=== PATIENT | female | born 1955 | race Caucasian/White ===

== ENCOUNTER 2018-10-12 09:32 | Outpatient (CLI) | payer OTHER ==
--- NOTE | 2018-10-12 10:47 | BD ---
DEXA BONE DENSITY STUDY: Date: 10/12/18 COMPARISON: None. HISTORY: 63-year-old postmenopausal female for screening for osteoporosis. FINDINGS: Lumbar Spine: BMD (g/cm2) L1 0.951 T-Score: -0.4 L2 0.955 T-Score: -0.7 L3 1.123 T-Score: 0.4 L4 1.058 T-Score: 0.0 L1-L4 1.025 T-Score: -0.2 Femoral Neck: 0.757 T-Score: -0.8 Total Femur: 0.957 T-Score: 0.1 IMPRESSION: Normal bone mineral density. POS: AMOR
--- NOTE | 2018-10-19 15:48 | MMO ---
Bilateral MAMMO Bilat Screen [facility]. CLINICAL HISTORY: Patient is 63 years old and is seen for screening. The patient has no family history of breast cancer. The patient has no personal history of cancer. VIEWS: The views performed were: bilateral craniocaudal with tomosynthesis and bilateral mediolateral oblique with tomosynthesis. FILMS COMPARED: The present examination has been compared to prior imaging studies performed at [facility] on 11/01/2013, 12/12/2014 and 05/14/2016. MAMMOGRAM FINDINGS: There are scattered fibroglandular densities. There is a lobular mass with circumscribed margins seen in the upper-outer region of the left breast. In the right breast, there are no suspicious masses, calcifications or areas of architectural distortion. IMPRESSION: MASS IN THE LEFT BREAST REQUIRES ADDITIONAL EVALUATION. AN ULTRASOUND EXAM IS RECOMMENDED. THE RESULTS OF THIS EXAM WERE SENT TO THE PATIENT. ACR BI-RADS Category 0 - Incomplete: Need additional imaging evaluation. [facility] will notify the patient of the need for additional imaging services. MAMMOGRAPHY NOTE: 1. A negative mammogram report should not delay a biopsy if a dominant of clinically suspicious mass is present. 2. Approximately 10% to 15% of breast cancers are not detected by mammography. 3. Adenosis and dense breasts may obscure an underlying neoplasm.
== END 2018-10-12 09:33 | disposition home or self-care (01) ==
LOC: BICMAMMO 09:32
PROVIDERS: ATTEND Family Medicine
DX: Z12.31 Encounter for screening mammogram for malignant neoplasm of breast (principal); Z13.820 Encounter for screening for osteoporosis; N63.21 Unspecified lump in the left breast, upper outer quadrant
CPT/HCPCS: 77063; 77067; 77080

== ENCOUNTER 2018-10-27 07:55 | Outpatient (CLI) | payer OTHER ==
--- NOTE | 2018-10-27 08:49 | ULT ---
LIMITED LEFT BREAST ULTRASOUND: Date: 10/27/18 PROVIDED CLINICAL HISTORY: Abnormal mammogram. FINDINGS: Correlation made with mammogram of 10/12/18. Limited sonographic interrogation is performed of the up per outer left breast in the region of mammographic concern. There is a circumscribed isoechoic to sl ightly hypoechoic mass at the 1 o'clock position of the left breast measuring approximately 1.2 cm, c orresponding to the mammogram finding. This demonstrates wider than tall morphology and smooth margin s. IMPRESSION: BI-RADS Category 4 - Suspicious abnormality. Ultrasound-guided biopsy is recommended. Results and recommendations discussed with the patient, who voiced understanding. POS: OFF
--- NOTE | 2018-10-27 13:30 | MMO ---
Left Breast MAMMO Unilat Diag [facility] LT. CLINICAL HISTORY: Patient is 63 years old and is seen for breast biopsy. The patient has no family history of breast cancer. The patient has no personal history of cancer. VIEWS: The views performed were: left craniocaudal and left mediolateral oblique. FILMS COMPARED: The present examination has been compared to prior imaging studies performed at [facility] on 10/12/2018 and 10/27/2018, and at [facility] on 12/12/2014 and 05/14/2016. MAMMOGRAM FINDINGS: There are scattered fibroglandular densities. There is a biopsy clip seen in the left breast. IMPRESSION: BIOPSY CLIP IN THE LEFT BREAST IS CONFIRMED UTILIZING POST PROCEDURE MAMMOGRAM. THE RESULTS OF THIS EXAM WERE SENT TO THE PATIENT. MAMMOGRAPHY NOTE: 1. A negative mammogram report should not delay a biopsy if a dominant of clinically suspicious mass is present. 2. Approximately 10% to 15% of breast cancers are not detected by mammography. 3. Adenosis and dense breasts may obscure an underlying neoplasm.
--- NOTE | 2018-10-27 14:17 | ULT ---
ULTRASOUND GUIDED LEFT BREAST BIOPSY: DATE: 10/27/2018. PROVIDED CLINICAL HISTORY: Mass. FINDINGS: Informed consent was obtained from the patient. The patient was placed on the sonography table in th e supine position and the previously described 1 o'clock left breast mass was localized. The skin ov erlying this area was prepped and draped in the usual sterile manner. The soft tissues were infiltra myranda with 1% buffered Lidocaine. The small skin incision was made. Contiguous sonographic guidance w as utilized to obtain 5 core samples of the mass. Subsequently, continuous sonography was utilized t o place a biopsy site marker adjacent to the mass. [place] were withdrawn and hemostasis achieved. No immediate complications. IMPRESSION: Technically successful ultrasound-guided left breast biopsy. Please correlate with histology results to follow. POS: OFF
== END 2018-10-27 07:56 | disposition home or self-care (01) ==
LOC: BICULT 07:55
PROVIDERS: ATTEND Family Medicine
DX: D24.2 Benign neoplasm of left breast (principal)
CPT/HCPCS: 19083; 88305

== ENCOUNTER 2022-06-03 10:08 | Outpatient (CLI) | payer MEDICARE | END 2022-06-03 10:09 | disposition home or self-care (01) | LOC: BICMAMMO 10:08 | PROVIDERS: ATTEND Surgery | DX: D24.2 Benign neoplasm of left breast (principal); Z98.890 Other specified postprocedural states | CPT/HCPCS: 76642; 77066; G0279 ==